=== PATIENT | female | born 1965 | race American Indian/Alaskan Native ===

== ENCOUNTER 2021-01-23 09:12 | Day surgery (SDC) | payer BC ==
[~2021-01-23 09:12] MED LIST: SODIUM CHLORIDE 0.9% 1000 ML 1,000 ML IV SCH
--- NOTE | 2021-01-23 10:38 | Anesthesia Day of Surgery ---
Anesthesia Day of Surgery - Day of Surgery Patient Examined: Yes Patient H&P Reviewed: Yes Patient is NPO: Yes
--- NOTE | 2021-01-23 10:38 | Anesthesia Consultation ---
Anesthesia Consult and Med Hx Date of service: 01/23/21 - Airway Anesthetic Teeth Evaluation: Good, Caps (#9 thao cap) ROM Head & Neck: Adequate Mental/Hyoid Distance: Adequate Mallampati Class: Class II Intubation Access Assessment: Probably Good - Pre-Operative Health Status ASA Pre-Surgery Classification: ASA2 Proposed Anesthetic Plan: MAC - Cardiovascular System Hx Hypertension: Yes - Gastrointestinal Hx Gastroesophageal Reflux Disease: Yes
[2021-01-23] MEDS ORDERED: propofoL 200 MG/20 ML VIAL IV ONE ×2 (12:19→12:35)
--- NOTE | 2021-01-23 12:52 | Procedure Note ---
Date of procedure: 01/23/21 Pre-op diagnosis: Colon Polyps Screening/ P/H/O Colon Polyps/ F/H/O Cancer Post-op diagnosis: other (Solitary, Small Rectal Polyp/ Incidental Right Colon Lipoma/Moderate,Left Colon Diverticuli/ Mild to Moderate Internal Hemorrhoids) Procedure: Colonoscopy with Cold Biopsy Anesthesia: CHRISTOFER Surgeon: VERENICE KWOK Estimated blood loss: minimal Pathology: list Specimen disposition: to lab Condition: stable Disposition: same day (Encourage fiber intake; avoid aspirin and NSAID for 5 d ays, otherwise resume home medication. F/U in 1 to 2 weeks ([phone]).)
--- NOTE | 2021-01-23 13:08 | Operative Report ---
DATE OF SURGERY: 01/23/2021 PROCEDURE: Colonoscopy with cold biopsy. INDICATIONS: This is a 55-year-old -[place] female with family history of cancer, prior history of colon polyp. She had a colonoscopy done as part of colon polyp screening. Last colonoscopy was done several years ago. DESCRIPTION OF PROCEDURE: Procedure was done after getting informed consent with MAC anesthesia. Initial rectal examination was unremarkable. The instrument was passed through the rectum onto the cecum, which was identified with ileocecal valve and the appendiceal orifice. The cecum was also visualized on the retroverted view and the scope was withdrawn to the hepatic flexure and reintroduced and no additional pathology was noted. Cecum, ascending colon, transverse colon showed normal mucosa. There was moderate diverticular disease noted in the left colon and solitary rectal polyp noted that was removed by cold biopsy. There was an incidental lipoma noted in the ascending colon that was photographed, but not biopsied and the rectum showed mild to moderate internal hemorrhoid on the retroverted view. ASSESSMENT: Colon polyp screening, family history of cancer, past history of colon polyps, solitary rectal polyp removed by cold biopsy, moderate left colon diverticula and mild to moderate internal hemorrhoid. There is minimal bleeding associated with removal of colon polyp. No complications associated with the procedure. PLAN: To encourage the patient to take fiber supplements, have the patient avoid aspirin and aspirin-related products for the next few days and follow up on the office in 1-2 weeks' time. Procedure was done in the GI lab with assistance of the GI lab team, which included the GI nurse, the carpet cleaning technician and with the assistance of anesthesia. TID: [id number] RECEIPT: [id number] RUBÉN/STD
--- NOTE | 2021-01-23 13:45 | Post Anesthesia Evaluation ---
- Post Anesthesia Evaluation Patient Participated: Yes Airway Patent: Yes Stable Respiratory Function: Yes Nausea/Vomiting: No Temp > 96.8F: Yes Pain Manageable: Yes Adequeate Hydration: Yes Anesthesia Complications: No
[2021-01-23 15:33] VITALS: BP 118/77
== END 2021-01-23 13:20 | disposition home or self-care (01) ==
LOC: GIO 09:12
DX: Z12.11 Encounter for screening for malignant neoplasm of colon (principal); K57.30 Diverticulosis of large intestine without perforation or abscess without bleeding; K64.8 Other hemorrhoids; K63.89 Other specified diseases of intestine; I10 Essential (primary) hypertension; K21.9 Gastro-esophageal reflux disease without esophagitis; Z79.899 Other long term (current) drug therapy; Z98.890 Other specified postprocedural states
CPT/HCPCS: 45380; 88305; J2704; J7030; J7120; Q0162